=== PATIENT | male | born 1965 | race Caucasian/White ===

== ENCOUNTER 2017-08-03 14:00 | Outpatient (CLI) | payer BC ==
--- NOTE | 2017-08-11 11:01 | Diagnostic Imaging Report ---
APPROVED REPORT CPT Code: 61012 Symptoms Claudication : Bilaterally BILATERAL: Common femoral artery waveform analysis is within normal limits at rest. Color flow duplex sonography reveals patency throughout the superficial femoral, and popliteal arteries. There is no evidence of stenosis or occlusion within these segments. The posterior tibial, anterior tibial and dorsalis pedis arteries are also patent. CHERRIE within normal limits as follows: 1.1 (right leg) and1.1 (left leg). Doppler tibial artery waveform analysis is within normal limits bilaterally. RIGHT ARM: 124 [facility] LEFT ARM:123 [facility] LEFT LE [facility] LEFT LE MMHG CHERRIE 1.1 CHERRIE 1.1
== END 2017-08-03 16:00 | disposition home or self-care (01) ==
LOC: VAS 14:00
DX: I73.9 Peripheral vascular disease, unspecified (principal)
CPT/HCPCS: 93925